=== PATIENT | male | born 1950 | race Native Hawaiian/Other Pacific Islander ===

== ENCOUNTER 2021-01-19 15:25 | Outpatient (CLI) | payer OTHER ==
[2021-01-19 15:54] LABS: PLATELET COUNT 317 K/uL (142-355)
[2021-01-19 16:32] LABS: POTASSIUM 4.1 mmol/L (3.6-5.2)
== END 2021-01-19 20:11 | disposition home or self-care (01) ==
LOC: LABW 15:25
PROVIDERS: ATTEND Student in an Organized Health Care Education/Training Program
DX: R53.1 Weakness (principal); I48.91 Unspecified atrial fibrillation; E03.8 Other specified hypothyroidism
CPT/HCPCS: 36415; 80053; 82607; 83735; 84100; 84436; 84443; 85027; 86140